=== PATIENT | male | born 1945 | race Caucasian/White ===

== ENCOUNTER 2018-12-19 06:06 | Day surgery (SDC) | payer OTHER ==
[2018-12-18 14:18] VITALS: BMI 26.5
[~2018-12-19 06:06] MED LIST: TOBRAMYCIN/DEXAMETHASONE OPHTH. OINTMENT 1 TUBE TP ONE
[2018-12-19] MEDS ORDERED: DICLOFENAC SODIUM 0.1% OPHTHALMIC 2.5ML BOTTLE ONE (06:25)
[2018-12-19] MEDS ORDERED: TROPICAMIDE 1% OPHTH SOLN 15 ML BOTTLE ONE (06:25)
[2018-12-19] MEDS ORDERED: PHENYLEPHRINE 2.5% OPHTH SOLN 15 ML BOTTLE ONE (06:25)
[2018-12-19] MEDS ORDERED: CIPROFLOXACIN HCL 0.3% OPHTH 2.5ML BOTTLE ONE (06:25)
[2018-12-19] MEDS: CIPROFLOXACIN HCL 0.3% OPHTH 2.5ML BOTTLE OP SCH ×3 (06:40→06:55)
[2018-12-19] MEDS: TROPICAMIDE 1% OPHTH SOLN 15 ML BOTTLE OP SCH ×2 (06:40→06:45)
[2018-12-19] MEDS: KETOROLAC TROMETHAMINE 0.5% EYE DROP 1 DROP DROPS OP SCH ×3 (06:40→06:55)
[2018-12-19] MEDS: PHENYLEPHRINE 2.5% OPHTH SOLN 15 ML BOTTLE OP SCH ×2 (06:40→06:45)
[2018-12-19] MEDS ORDERED: ACETAMINOPHEN 325 MG TABLET (FP) PO PRN (06:45)
[2018-12-19 06:48] VITALS: TEMP 97.6
[2018-12-19] MEDS ORDERED: CIPROFLOXACIN 0.3% EYE DROPS 5 ML BOTTLE OP ONE (06:55)
[2018-12-19] MEDS ORDERED: PHENYLEPHRINE 2.5% OPHTH SOLN 15 ML BOTTLE OP ONE (06:55)
[2018-12-19] MEDS ORDERED: POVIDONE-IODINE 5% OPHTHALMIC PREP 30 ML SOLUTION ONE (07:24)
[2018-12-19] MEDS ORDERED: CHONDROITIN SU A/HYALUR SOD 1 KIT ONE (07:24)
[2018-12-19] MEDS ORDERED: EPINEPHrine/PF 1 MG/1 ML (1:1,000) AMPULE ONE (07:24)
[2018-12-19] MEDS ORDERED: TOBRAMYCIN/DEXAMETHASONE OPHTH. OINTMENT 1 TUBE ONE (07:24)
[2018-12-19] MEDS ORDERED: MIDAZOLAM HCL 2 MG/2 ML SINGLE DOSE VIAL ONE (07:30)
[2018-12-19] MEDS ORDERED: BSS (NA/CA/MG/K) BALANCED SALT SOLUTION OPHTH SOLN 15 ML BOTTLE ONE (07:31)
[2018-12-19] MEDS ORDERED: LIDOCAINE HCL/PF 1% SDV 5ML VIAL ONE (07:31)
[2018-12-19] MEDS ORDERED: TETRACAINE 0.5% OPHTH SOLN 2 ML BOTTLE ONE (07:31)
--- NOTE | 2018-12-19 07:35 | HP ---
- Patient Scheduled date of Surgery: 12/19/18 Scheduled Surgical Procedure: Phacoemulsification and cataract extraction with PCIOL Affected Eye: Right Chief Complaint (Indication for surgery): Decreased vision affecting ADLs - Ocular History Other Eye History: Other (glaucoma supsect, HTN retinopathy, stromal scar) Eye Medications: vigamox tid od Previous Eye Surgery: none - Medical History Illnesses: Cardiac Disorders (Chest pain, SOB, HI, Valve disease), Hypertension , Other (afib, NHL, CKD stgage 2) Current Medications: Ambulatory Orders Allopurinol [Zyloprim -] 100 mg PO DAILY #0 tablet 12/05/11 Aspirin [ASA -] 81 mg PO DAILY #0 tab.chew 12/05/11 Multivitamins [Multivit ([facility] Formulary)] 1 each PO DAILY #0 tab 12/05/11 Metoprolol Tartrate [Lopressor] 12.5 mg PO BID 06/24/12 Ranitidine [Zantac -] 150 mg PO DAILY 12/18/18 Rivaroxaban [Xarelto -] 20 mg PO DAILY 12/18/18 Simvastatin [Zocor -] 10 mg PO HS 12/18/18 Allergies/Adverse Reactions: Allergies Allergy/AdvReac Type Severity Reaction Status Date / Time No Known Allergies Allergy Verified 12/18/18 14:13 Ocular Examination - Best Corrected Visual Acuity Distance: Right eye: 20/40 Distance: Left eye: 20/40 - External/Slit Lamp Examination Abnormalities: stromal scar , arus senilis - Intraocular Pressure Intraocular Pressure - Right eye: 14 Intraocular Pressure-Left eye: 14 - Lens Lens: 2+ NS 3+ diffuse PSC - Vitreous/Retina Vitreous/Retina: C:D 0.7 m/v/p wnl - Special Examination M - Right eye: plano -0.75 x 080 M - Left eye: -0.75 K - Right eye: 43.5/43.75 x114 K - Left eye: 43.5/44 x 165 AL - Right eye: 23.44 AL - Left eye: 23.43 IOL bag: +21.0 AUOOTO IOL sulcus: +20.0 [id number] IOL AC: +17.5 [id number] - Impression Impression: Cataract Right Eye - Plan Plan: Phacoemulsification and cataract extraction - IOL Right eye Post-hospital care will be provided in office on: 12/20/18
--- NOTE | 2018-12-19 07:36 | HP ---
History & Physical Update - History History: No Change (H and P reviewed by Dr. Nava 11/26/18 no changes) - Physical Physical: No Change - Assessment Assessment: No Change - Plan Plan: No Change
[2018-12-19] MEDS ORDERED: LIDOCAINE HCL/PF 2% SDV 5ML VIAL ONE (07:46)
[2018-12-19] MEDS ORDERED: BUPIVACAINE HCL/PF 0.75% 10 ML VIAL ONE (07:46)
[2018-12-19] MEDS ORDERED: PROPOFOL 20 ML ONE (07:56)
[2018-12-19] MEDS ORDERED: LIDOCAINE HCL/PF 2% SDV 5ML VIAL INF ONE (08:00)
[2018-12-19] MEDS ORDERED: BUPIVACAINE HCL/PF 0.75% 10 ML VIAL NR ONE (08:00)
[2018-12-19] MEDS ORDERED: TETRACAINE 0.5% OPHTH SOLN 2 ML BOTTLE OD ONE (08:01)
[2018-12-19] MEDS ORDERED: POVIDONE-IODINE 5% OPHTHALMIC PREP 30 ML SOLUTION OD ONE (08:02)
[2018-12-19] MEDS ORDERED: BSS (NA/CA/MG/K) BALANCED SALT SOLUTION OPHTH SOLN 15 ML BOTTLE OD ONE (08:12)
[2018-12-19] MEDS ORDERED: CHONDROITIN SU A/HYALUR SOD 1 KIT IO ONE (08:12)
[2018-12-19] MEDS ORDERED: EPINEPHrine/PF 1 MG/1 ML (1:1,000) AMPULE SQ ONE (08:18)
[2018-12-19] MEDS ORDERED: TOBRAMYCIN/DEXAMETHASONE OPHTH. OINTMENT 1 TUBE TP ONE (08:41)
--- NOTE | 2018-12-19 08:53 | OP ---
Ophthalmology Operative Note Pre-Operative Diagnosis: Cataract (posterior subcapsular cataract) Affected Eye: Right Operation: Phacoemulsification and cataract extraction with PCIOL Findings: PSC cataract right eye Post-Operative Diagnosis: Same as Pre-op Teacher Selection Specialist: None Anesthesiologist: Alcides George Anesthesia: Peribulbar Specimens Removed: none Estimated blood loss: < 1cc Drains & Tubes with Location: none Operative Report Dictated: Yes
[2018-12-19 09:36] VITALS: BP 140/70; PULSE 88
--- NOTE | 2018-12-19 14:39 | OP ---
DATE OF OPERATION: DATE OF DICTATION: 12/19/2018 PREOPERATIVE DIAGNOSIS: Posterior subcapsular cataract, right eye. POSTOPERATIVE DIAGNOSIS: Posterior subcapsular cataract, right eye. PROCEDURE: Phacoemulsification and cataract extraction with insertion of posterior chamber intraocular lens, right eye. SURGEON: Cherise Hutchison MD AGENCY MANAGER: None. ANESTHESIA: Peribulbar block. ANESTHESIOLOGIST: OPERATIVE PROCEDURE: Following satisfactory intravenous sedation, the patient received local anesthesia using a 50/50 mixture of lidocaine 2% and Marcaine 0.75%. A Van Lint lid block was delivered to the right eye using 3 mL of the mixture and a peribulbar block using 4 mL of the mixture. The patient was then prepped and draped in the usual sterile fashion so as to expose only the right eye. Ophthalmic Betadine was instilled into the inferior fornix, and lashes were taped out of the surgical field. An eyelid speculum was placed into the right eye. A paracentesis was made in superior temporal clear cornea at the limbus. Viscoelastic material was instilled into the anterior chamber via the paracentesis. A 2.4-mm keratome was then used to create the main incision in temporal clear cornea at the limbus. A continuous curvilinear capsulorrhexis was performed using a cystotome and Utrata forceps. Hyrodissection of the lens cortex was performed using BSS on a cannula until the nucleus was noted to be freely rotating. The phacoemulsification tip was then inserted via the main wound and used to sculpt 2 perpendicular grooves into the lens nucleus. The nucleus was cracked into 4 quadrants. Each quadrant was lifted out of the capsule into the iris plane and individually phacoemulsified. The remaining cortical material was then aspirated using the irrigation and aspiration port. The capsular bag was inflated using Provisc, and a preloaded AcrySof lens model [id number], power +21.0 diopter was injected into the capsular bag and centered using a Sinskey hook. The residual viscoelastic material was removed from the anterior chamber using irrigation and aspiration. The wound edges were hydrated using BSS. The wound was found to be slightly leaky; therefore, one 10-0 nylon suture was placed across the wound, and again, the wound was tested. It was found to be watertight. Tobradex ointment was placed in the eye, and a speculum was removed from the eye, and the eyelid was closed. A sterile dressing and shield were placed over the eye, and the patient was transferred to the recovery room in stable condition. Told to follow up in 1 day. CHERISE HUTCHISON M.D. [id number]
== END 2018-12-19 09:30 | disposition home or self-care (01) ==
LOC: JASU-SURG 06:06
PROVIDERS: ATTEND Ophthalmology
PROC: 08RJ3JZ Replacement of Right Lens with Synthetic Substitute, Percutaneous Approach (ICD-10-PCS; principal; 2018-12-19 07:30)
DX: H25.041 Posterior subcapsular polar age-related cataract, right eye (principal); I48.91 Unspecified atrial fibrillation; Z79.01 Long term (current) use of anticoagulants

== ENCOUNTER 2021-05-20 10:42 | Emergency (ER) | payer OTHER ==
[2021-05-20] MEDS ORDERED: KETOROLAC TROMETHAMINE 60 MG/2 ML VIAL IM ONE (11:00)
[2021-05-20 11:09] VITALS: BP 118/65; PULSE 70; TEMP 98.2; BMI 26.5
[2021-05-20] MEDS ORDERED: KETOROLAC TROMETHAMINE 30 MG/1 ML VIAL ONE (11:09)
== END 2021-05-20 12:05 | disposition home or self-care (01) ==
LOC: FER 10:42
PROC: 3E023GC Introduction of Other Therapeutic Substance into Muscle, Percutaneous Approach (ICD-10-PCS; principal; 2021-05-20)
DX: M54.32 Sciatica, left side (principal)
CPT/HCPCS: 99284-25

== ENCOUNTER 2022-04-06 04:17 | Day surgery (SDC) | payer OTHER ==
[2022-04-04 17:56] VITALS: BMI 25.1
[2022-04-06] MEDS ORDERED: TOBRAMYCIN/DEXAMETHASONE OPHTH. OINTMENT 1 TUBE ONE (07:23)
[2022-04-06] MEDS ORDERED: TETRACAINE 0.5% OPHTH SOLN 2 ML BOTTLE ONE (07:24)
[2022-04-06] MEDS ORDERED: LIDOCAINE HCL/PF 1% SDV 5ML VIAL ONE (07:24)
[2022-04-06] MEDS ORDERED: POVIDONE-IODINE 5% OPHTHALMIC PREP 30 ML SOLUTION ONE (07:24)
[2022-04-06] MEDS ORDERED: BSS (NA/CA/MG/K) BALANCED SALT SOLUTION OPHTH SOLN 15 ML BOTTLE ONE (07:33)
[2022-04-06] MEDS ORDERED: EPINEPHrine/PF 1 MG/1 ML (1:1,000) AMPULE ONE (07:33)
[2022-04-06] MEDS ORDERED: ACETAMINOPHEN 325 MG TABLET (FP) PO PRN (07:33)
[2022-04-06] MEDS ORDERED: KETOROLAC TROMETHAMINE 0.5% EYE DROP 1 DROP DROPS OP SCH (07:45)
[2022-04-06] MEDS ORDERED: PHENYLEPHRINE 2.5% OPHTH SOLN 15 ML BOTTLE OP SCH (07:45)
[2022-04-06] MEDS ORDERED: CIPROFLOXACIN HCL 0.3% OPHTH 2.5ML BOTTLE OP SCH (07:45)
[2022-04-06] MEDS ORDERED: TROPICAMIDE 1% OPHTH SOLN 15 ML BOTTLE OP SCH (07:45)
[2022-04-06] MEDS ORDERED: PHENYLEPHRINE 2.5% OPTHALMIC DROP 2ML BOTTLE ONE (08:14)
[2022-04-06] MEDS ORDERED: TROPICAMIDE 1% OPHTH SOLN 15 ML BOTTLE ONE (08:14)
[2022-04-06] MEDS ORDERED: CIPROFLOXACIN HCL 0.3% OPHTH 2.5ML BOTTLE ONE (08:14)
[2022-04-06] MEDS ORDERED: KETOROLAC TROMETHAMINE 0.5% EYE DROP 1 DROP DROPS ONE (08:14)
[2022-04-06] MEDS ORDERED: CIPROFLOXACIN 0.3% EYE DROPS 5 ML BOTTLE OS ONE (08:30)
[2022-04-06] MEDS ORDERED: TROPICAMIDE 1% OPHTH SOLN 15 ML BOTTLE OS ONE ×3 (08:30→08:40)
[2022-04-06] MEDS ORDERED: PHENYLEPHRINE 2.5% OPTHALMIC DROP BOTTLE OS ONE ×3 (08:30→08:40)
[2022-04-06] MEDS ORDERED: KETOROLAC TROMETHAMINE 0.5% EYE DROP 1 DROP DROPS OS ONE ×3 (08:30→08:40)
[2022-04-06 08:33] VITALS: RESP 18
[2022-04-06] MEDS ORDERED: CIPROFLOXACIN HCL 0.3% OPHTH 2.5ML BOTTLE OS ONE ×2 (08:45→09:00)
[2022-04-06] MEDS ORDERED: LIDOCAINE HCL/PF 2% SDV 5ML VIAL ONE (10:35)
[2022-04-06] MEDS ORDERED: BUPIVACAINE HCL/PF 0.75% 10 ML VIAL ONE (10:36)
[2022-04-06] MEDS ORDERED: PROPOFOL 20 ML ONE (10:50)
[2022-04-06] MEDS ORDERED: MIDAZOLAM HCL 2 MG/2 ML SINGLE DOSE VIAL ONE (10:50)
[2022-04-06] MEDS ORDERED: TETRACAINE 0.5% OPHTH SOLN 2 ML BOTTLE OS ONE (10:54)
[2022-04-06] MEDS ORDERED: BUPIVACAINE HCL/PF 0.75% 10 ML VIAL PNB ONE ×2 (10:57)
[2022-04-06] MEDS ORDERED: LIDOCAINE HCL/PF 2% SDV 5ML VIAL PNB ONE ×2 (10:57)
[2022-04-06] MEDS ORDERED: POVIDONE-IODINE 5% OPHTHALMIC PREP 30 ML SOLUTION OS ONE (10:59)
[2022-04-06] MEDS ORDERED: TRYPAN BLUE 0.5 ML DISP.SYRIN IO ONE (11:04)
[2022-04-06] MEDS ORDERED: CHONDROITIN SU A/HYALUR SOD 1 KIT IO ONE (11:06)
[2022-04-06] MEDS ORDERED: EPINEPHrine/PF 1 MG/1 ML (1:1,000) AMPULE SQ ONE (11:11)
[2022-04-06] MEDS ORDERED: TOBRAMYCIN/DEXAMETHASONE OPHTH. OINTMENT 1 TUBE OS ONE (11:21)
[2022-04-06 12:57] VITALS: BP 113/58; PULSE 61; TEMP 97.3
== END 2022-04-06 12:20 | disposition home or self-care (01) ==
LOC: JASU-SURG 04:17
PROVIDERS: ATTEND Ophthalmology
PROC: 08RK3JZ Replacement of Left Lens with Synthetic Substitute, Percutaneous Approach (ICD-10-PCS; principal; 2022-04-06 10:30)
DX: H25.042 Posterior subcapsular polar age-related cataract, left eye (principal)
CPT/HCPCS: V2632

== ENCOUNTER 2024-07-07 21:54 | Emergency (ER) | payer OTHER ==
[2024-07-07 21:57] VITALS: BP 166/69; PULSE 62; RESP 17; TEMP 98.6; BMI 24.3
== END 2024-07-07 22:47 | disposition home or self-care (01) ==
LOC: JER 21:54
DX: R04.0 Epistaxis (principal); R06.7 Sneezing
CPT/HCPCS: 99283-25